=== PATIENT | female | born 1995 | race Caucasian/White ===

== ENCOUNTER 2016-08-19 02:27 | Emergency (ER) | payer OTHER ==
[~2016-08-19] VITALS: Ht 172.7 cm; Wt 78.0 kg
[2016-08-19 02:59] LABS: Urine Color Yellow (Yellow); Urine Glucose Normal (Normal)
[2016-08-19 03:00] LABS: Urine Bilirubin Negative (Negative); Urine Blood Negative /uL (Negative); Urine Ketone Negative (Negative); Urine Nitrite Negative (Negative); Urine Urobilinogen Normal (Negative); Urine pH 5.5 (5.0-8.0)
[2016-08-19 03:00] LABS: Basophils # (auto) 0.1 uL; Basophils % (auto) 0.5 % (0.0-2.0); Eosinophils # (auto) 0.3 uL; Hematocrit 43.1 % (36.0-46.0); Hemoglobin 14.4 g/dL (12.2-16.2); Lymphocytes # (auto) 3.9 uL; Lymphocytes % (auto) 35.5 % (10.0-50.0); Mean Corpuscular Hemoglobin 30.3 pg (28.0-32.0); Mean Corpuscular Hgb Conc. 33.5 g/dL (32.0-36.0); Mean Corpuscular Volume 90.4 fL (80.0-100.0); Mean Platelet Volume 7.7 fL (7.4-10.4); Monocytes % (auto) 9.5 % (0.0-12.0); Neutrophils # (auto) 5.6 uL; Neutrophils % (auto) 51.5 % (37.0-80.0); Platelet Count (auto) 350 10^3/uL (140-450); Red Cell Distribution Width 13.7 % (11.6-16.0); White Blood Cell 10.9 10^3/uL (4.4-10.8)
[2016-08-19 03:08] LABS: Urine RBC <1 /hpf (0 - 4); Urine Squamous Epithelial Cell 7 /hpf (<5)
[2016-08-19 03:19] LABS: INR 1.11 (0.9-1.15); Partial Thromboplastin Time 27.2 sec (22.64-33.71); Prothrombin Time 11.4 sec (9.37-12.3)
[2016-08-19 03:22] LABS: Albumin 4.2 g/dL (3.4-5.0); BUN/Creatinine Ratio 10.2; Calcium 8.7 mg/dL (8.5-10.1); Potassium 3.6 mmol/L (3.5-5.1)
[2016-08-19 03:25] LABS: Bilirubin, Total 0.6 mg/dL (0.2-1.0); Total Protein 7.8 g/dL (6.4-8.2)
[2016-08-19 07:25] VITALS: BP 119/60
== END 2016-08-19 07:25 | disposition home or self-care (01) ==
LOC: ER 02:30
DX: R10.31 Right lower quadrant pain (principal)
CPT/HCPCS: 36415; 74176; 80053; 81001; 81025; 82150; 83690; 85025; 85610; 85730

== ENCOUNTER 2022-01-24 21:40 | Emergency (ER) | payer OTHER ==
[~2022-01-24] VITALS: Ht 172.7 cm; Wt 86.6 kg
[2022-01-24] MEDS ORDERED: SODIUM CHLORIDE 0.9% 1,000 ML IVB ONE (22:00)
[2022-01-24] MEDS ORDERED: ONDANSETRON HCL 4 MG/2 ML VIAL IV ONE (22:15)
[2022-01-24 22:30] LABS: Albumin 4.3 g/dL (3.4-5.0); Potassium 4.1 mmol/L (3.5-5.1)
[2022-01-24 22:39] LABS: BUN/Creatinine Ratio 11.7; Bilirubin, Total 0.3 mg/dL (0.2-1.0); Total Protein 8.3 g/dL (6.4-8.2)
[2022-01-24 22:44] LABS: Urine Bacteria MOD /hpf (None Seen); Urine Blood Negative /uL (Negative); Urine Specific Gravity 1.017 (1.001-1.035); Urine WBC 5 /hpf (0 - 5)
[2022-01-24 22:52] LABS: Basophils # (auto) 0.1 10 ^3/uL (0-0.2); Basophils % (auto) 1.1 % (0.0-2.0); Eosinophils # (auto) 0.1 10 ^3/uL (0-0.8); Eosinophils % (auto) 1.5 % (0.0-7.0); Hematocrit 42.9 % (36.0-46.0); Hemoglobin 14.6 g/dL (12.2-16.2); Lymphocytes # (auto) 1.5 10 ^3/uL (0.4-5.4); Lymphocytes % (auto) 26.1 % (10.0-50.0); Mean Corpuscular Hemoglobin 30.9 pg (28.0-32.0); Mean Corpuscular Hgb Conc. 34.1 g/dL (32.0-36.0); Mean Corpuscular Volume 90.6 fL (80.0-100.0); Monocytes # (auto) 0.9 10 ^3/uL (0-1.3); Monocytes % (auto) 15.7 % (0.0-12.0); Neutrophils # (auto) 3.2 10 ^3/uL (1.6-8.6); Neutrophils % (auto) 55.6 % (37.0-80.0); Nucleated Red Blood Cells % 0.1 %; Red Blood Cells 4.73 10^6/uL (4.0-5.20); Red Cell Distribution Width 13.3 % (11.8-14.3); White Blood Cell 5.8 10^3/uL (4.4-10.8)
[2022-01-24 22:59] LABS: Alcohol, Urine < 3.0 mg/dL (0-10); Amphetamine Screen, Urine NEGATIVE (NEGATIVE); Barbiturate Scree,Urine NEGATIVE (NEGATIVE); Benzodiazephine Screen, Urine NEGATIVE (NEGATIVE); Cannabinoid Screen, Urine NEGATIVE (NEGATIVE); Cocaine Screen, Urine NEGATIVE (NEGATIVE); Opiate Scree,Urine NEGATIVE (NEGATIVE); Phencyclidine Screen, Urine NEGATIVE (NEGATIVE)
[2022-01-24] MEDS ORDERED: MECL1TAB42 PO (22:59)
[2022-01-24] MEDS ORDERED: MECLIZINE HCL 25 MG TAB PO ONE (23:30)
[2022-01-24 23:48] VITALS: BP 128/88
== END 2022-01-24 23:03 | disposition home or self-care (01) ==
LOC: ER 21:40
DX: R42 Dizziness and giddiness (principal); Z20.822 Contact with and (suspected) exposure to COVID-19
CPT/HCPCS: 36415; 70450; 80053; 80307; 81001; 84702; 85025; 87426; 96361; 96374; 99284; J2405; J7030; J8597

== ENCOUNTER 2022-08-02 23:15 | Emergency (ER) | payer BC, OTHER ==
[~2022-08-02] VITALS: Ht 175.3 cm; Wt 90.9 kg
[~2022-08-02 23:15] MED LIST: CEPH-322 PO; HYDR-4902 PO; MECL1TAB42 PO; ONDA-144 PO; SENN1TAB14 PO
[2022-08-03 00:27] LABS: Albumin 4.2 g/dL (3.4-5.0); BUN/Creatinine Ratio 18.9; Calcium 9.1 mg/dL (8.5-10.1); Potassium 4.1 mmol/L (3.5-5.1)
[2022-08-03 00:30] LABS: Bilirubin, Total 0.6 mg/dL (0.2-1.0); Total Protein 7.4 g/dL (6.4-8.2)
[2022-08-03] MEDS ORDERED: ALPRAZolam 0.5 MG TAB PO ONE (00:30)
[2022-08-03 00:34] LABS: Basophils # (auto) 0 10 ^3/uL (0-0.2); Eosinophils # (auto) 0.1 10 ^3/uL (0-0.8); Eosinophils % (auto) 2.3 % (0.0-7.0); Hematocrit 41.8 % (36.0-46.0); Hemoglobin 13.9 g/dL (12.2-16.2); Lymphocytes % (auto) 15.4 % (10.0-50.0); Mean Corpuscular Hemoglobin 30.4 pg (28.0-32.0); Mean Corpuscular Hgb Conc. 33.2 g/dL (32.0-36.0); Mean Corpuscular Volume 91.6 fL (80.0-100.0); Monocytes # (auto) 0.3 10 ^3/uL (0-1.3); Monocytes % (auto) 4.7 % (0.0-12.0); Neutrophils # (auto) 5.1 10 ^3/uL (1.6-8.6); Neutrophils % (auto) 77.6 % (37.0-80.0); Nucleated Red Blood Cells % 0.1 %; Red Blood Cells 4.57 10^6/uL (4.0-5.20); Red Cell Distribution Width 13.5 % (11.8-14.3); White Blood Cell 6.6 10^3/uL (4.4-10.8)
[2022-08-03 00:37] LABS: Beta HCG, Quantitative < 1 mlU/mL (1-3)
[2022-08-03 01:05] VITALS: BP 114/77
[2022-08-21] MEDS ORDERED: ALBUAER3 IN (01:33)
[2022-08-21] MEDS ORDERED: AMOX500T86 PO (01:33)
[2022-08-21] MEDS ORDERED: ONDA-144 PO (01:33)
[2022-08-21] MEDS ORDERED: PRED20TA2 PO (01:33)
[2022-08-21] MEDS ORDERED: HYDR-4902 PO (01:33)
[2022-09-03] MEDS ORDERED: HYDR-4902 PO (07:56)
[2022-09-19] MEDS ORDERED: HYDR-4902 PO (01:31)
[2022-09-19] MEDS ORDERED: LISD70CA PO ×2 (04:05→04:08)
== END 2022-08-03 01:15 | disposition home or self-care (01) ==
LOC: ER 23:15 → EEVIPCON 23:15 → ER 08-03 01:06
DX: F41.1 Generalized anxiety disorder (principal); R10.2 Pelvic and perineal pain; Z79.899 Other long term (current) drug therapy; Z98.890 Other specified postprocedural states
CPT/HCPCS: 36415; 80053; 84443; 84702; 85025; 93005

== ENCOUNTER 2023-02-28 07:32 | Emergency (ER) | payer BC, MEDICAID ==
[~2023-02-28] VITALS: Ht 175.3 cm; Wt 83.9 kg
[~2023-02-28 07:32] MED LIST changes: +ALBUAER3 IN; +AMOX500T86 PO; -CEPH-322 PO; +CEPH250C PO; +DESO1TAB34 PO; +HYDR-4072 PO; +HYDR-4798 PO; +LISD70CA PO; +PRED20TA2 PO; +[UNRECOGNIZED DRUG - CODE] OR
[2023-02-28 07:40] VITALS: BP 143/80; PULSE 96; RESP 16; TEMP 98.1; O2SAT 98
[2023-02-28] MEDS ORDERED: LISD70CA PO (07:53)
== END 2023-02-28 08:01 | disposition home or self-care (01) ==
LOC: ER 07:32 → EEVIPCON 07:32 → ER 08:01
DX: Z76.0 Encounter for issue of repeat prescription (principal); Z79.899 Other long term (current) drug therapy

== ENCOUNTER 2023-07-31 20:55 | Emergency (ER) | payer BC, MEDICAID, OTHER ==
[~2023-07-31] VITALS: Ht 375.9 cm; Wt 74.5 kg
[~2023-07-31 20:55] MED LIST changes: +METH-1182 PO
[2023-07-31 21:20] VITALS: BP 136/92; PULSE 111; RESP 18; TEMP 97.5; O2SAT 97
[2023-07-31 22:08] LABS: Hepatitis B Surface Antibody Positive (Negative)
[2023-07-31 22:20] LABS: Hepatitis B Surface Antigen Negative (Negative)
== END 2023-07-31 22:18 | disposition home or self-care (01) ==
LOC: EEVIPCON 20:55 → ER 20:55
DX: S61.234A Puncture wound without foreign body of right ring finger without damage to nail, initial encounter (principal); Z77.21 Contact with and (suspected) exposure to potentially hazardous body fluids; Z79.899 Other long term (current) drug therapy; W46.0XXA Contact with hypodermic needle, initial encounter; Y93.89 Activity, other specified; Y92.89 Other specified places as the place of occurrence of the external cause; Y99.0 Civilian activity done for income or pay
CPT/HCPCS: 36415; 86703; 86706; 86803; 87340